=== PATIENT | female | born 1955 | race Caucasian/White ===

== ENCOUNTER → 2017-12-28 15:53 | Outpatient (CLI) | payer OTHER, SELFPAY ==
--- NOTE | 2017-12-28 15:56 | BI_ITS ---
MAMMOGRAPHY - BILATERAL SCREENING REASON FOR EXAM: Female, 62 years old. Routine annual screening examination. PERTINENT HISTORY: Non-contributory. TECHNIQUE: Digital bilateral breast samuel (3D mammographic acquisition) in the CC and MLO projections. 2-D mediolateral oblique (MLO) and craniocaudad (CC) views of both breasts were obtained. CAD: Full Field Digital Mammography with Computer Added Detection was performed. COMPARISON: No comparison mammograms available at this time. If any prior films become available, an addendum to this report can be generated. FINDINGS: Breast Composition: The breasts are heterogeneously dense, which may obscure small masses. There are no dominant masses or suspicious calcifications. There are several small benign-appearing bilateral axillary lymph nodes. No other significant abnormalities are identified. BI/SCREENING MAMM (CAD), BILAT IMPRESSION: Negative screening mammogram. Yearly followup mammogram recommended. (A) ASSESSMENT CATEGORY: BIRADS Category 2: Benign. A letter regarding these results will be sent to the patient by the facility within 30 days. Approximately 10% of breast cancers are not detected by mammography. A normal mammogram should not delay biopsy of a clinically suspicious abnormality. [id number] Electronically Signed: Derek Cabezas MD at 8:10 EDT Tel [phone], Service support ,
== END ==
PROVIDERS: Family Provider Family Medicine; PCP Family Medicine; Visit Provider Obstetrics & Gynecology
DX: Z12.31 Encounter for screening mammogram for malignant neoplasm of breast (principal)
CPT/HCPCS: 77063; 77067

== ENCOUNTER → 2019-12-09 | Outpatient (CLI) | payer OTHER, SELFPAY ==
--- NOTE | 2019-12-09 08:26 | BI_ITS ---
MAMMOGRAPHY - BILATERAL SCREENING REASON FOR EXAM: Female, 64 years old. Routine annual screening examination. PERTINENT HISTORY: Non-contributory. TECHNIQUE: Digital bilateral breast corrie (3D mammographic acquisition) in the CC and MLO projections. 2-D mediolateral oblique (MLO) and craniocaudad (CC) views of both breasts were obtained. CAD: Full Field Digital Mammography with Computer Added Detection was performed. COMPARISON: Comparison is made with prior examination dated December 28, 2017. FINDINGS: Breast Composition: The breasts are heterogeneously dense, which may obscure small masses. There are no dominant masses or suspicious calcifications. Stable small benign-appearing bilateral axillary lymph nodes. No other significant abnormalities are identified. There has been no significant change since the prior study. BI/SCREEN MAMM (CAD) W/CORRIE BILAT IMPRESSION: Stable bilateral screening mammogram. Yearly follow-up mammogram recommended. (A) ASSESSMENT CATEGORY: BIRADS Category 2: Benign. A letter regarding these results will be sent to the patient by the facility within 30 days. Approximately 10% of breast cancers are not detected by mammography. A normal mammogram should not delay biopsy of a clinically suspicious abnormality. [id number] Electronically Signed: Derek Cabezas, at 10:02 EDT , Service support ,
== END | disposition home or self-care (01) ==
LOC: OPBI 08:23
PROVIDERS: PCP Family Medicine; Referring Provider Physician Assistant; Visit Provider Physician Assistant
DX: Z12.31 Encounter for screening mammogram for malignant neoplasm of breast (principal)
CPT/HCPCS: 77063; 77067

== ENCOUNTER 2023-02-07 09:43 | Outpatient (CLI) | payer MEDICARE, OTHER, SELFPAY ==
--- NOTE | 2023-02-07 09:47 | BI_ITS ---
MAMMOGRAPHY - BILATERAL SCREENING REASON FOR EXAM: Female, 67 years old. Routine annual screening examination. PERTINENT HISTORY: Non-contributory. TECHNIQUE: Digital bilateral breast corrie (3D mammographic acquisition) in the CC and MLO projections. 2-D mediolateral oblique (MLO) and craniocaudad (CC) views of both breasts were obtained. CAD: Full Field Digital Mammography with Computer Added Detection was performed. COMPARISON: Comparison is made with prior examination of December 09, 2019 and December 28, 2017. FINDINGS: Breast Composition: The breasts are heterogeneously dense, which may obscure small masses. There are no dominant masses or suspicious calcifications. Stable small benign-appearing bilateral axillary lymph nodes. No other significant abnormalities are identified. There has been no significant change since the prior study. BI/SCRN MAMM (CAD)W/CORRIE BILAT IMPRESSION: Stable bilateral screening mammogram. Yearly follow-up mammogram recommended. (A) ASSESSMENT CATEGORY: BIRADS Category 2: Benign. A letter regarding these results will be sent to the patient by the facility within 30 days. Approximately 10% of breast cancers are not detected by mammography. A normal mammogram should not delay biopsy of a clinically suspicious abnormality. [id number] Electronically Signed: Derek Cabezas MD at 11:00 EDT ,
--- NOTE | 2023-02-07 09:53 | BD_ITS ---
STUDY: DUAL ENERGY X-RAY ABSORPTIOMETRY / DXA REASON FOR EXAM: Female, 67 years old. [id number] TECHNIQUE: Bone Mineral Density (BMD) measurements of lumbar spine and bilateral hips were obtained. COMPARISON: None. FINDINGS: Lumbar Spine (L1-L4): g/cm2 (0.815) / T-score (-2.1) / Z-score (-0.3) Findings are suggestive of osteopenia with a high fracture risk. Left Femur Total: g/cm2 (0.694) / T-score (-2.0) / Z-score (-0.8) Left Femoral Neck: g/cm2 (0.626) / T-score (-2.0) / Z-score (-0.5) Right Femur Total: g/cm2 (0.704) / T-score (-2.0) / Z-score (-0.7) Right Femoral Neck: g/cm2 (0.594) / T-score (-2.3) / Z-score (-0.8) BD/Dexa Bone Density Study IMPRESSION: The patient is considered osteopenic as outlined below according to World Tommy Organization (WHO) criteria with a high fracture risk. Reference Information: The T-score is the number of standard deviations above or below the standard which is normal for young adults at their peak bone mineral density. The World Health Organization (WHO) interprets the T-scores as follows: Above -1 Normal bone density Between -1 and -2.5 Osteopenia Equal to / or below -2.5 Osteoporosis As a practical clinical guideline, osteopenia may be graded as follows: Mild -1 through -1.5 Moderate -1.6 through -2.0 Severe -2.1 through -2.4 The Z-score is the number of standard deviations above or below age-matched controls. A Z-score of less than -1.5 would be considered abnormal. References: 1. NIH Osteoporosis and Related Bone Diseases www osteo.org 2. International Society for Clinical Densitometry www iscd.org 3. National Osteoporosis Foundation www nof.org Electronically Signed: Derek Cabezas MD at 13:14 EDT ,
== END 2023-02-07 23:59 | disposition home or self-care (01) ==
LOC: OPBD 09:44
PROVIDERS: PCP Family Medicine; Referring Provider Physician Assistant; Visit Provider Physician Assistant
DX: Z12.31 Encounter for screening mammogram for malignant neoplasm of breast (principal); Z13.820 Encounter for screening for osteoporosis; N95.1 Menopausal and female climacteric states; M85.851 Other specified disorders of bone density and structure, right thigh; M85.852 Other specified disorders of bone density and structure, left thigh
CPT/HCPCS: 77063; 77067; 77080

== ENCOUNTER → 2023-02-09 | Outpatient (CLI) | payer MEDICARE, OTHER, SELFPAY ==
--- NOTE | 2023-02-09 13:30 | RAD_ITS ---
INDICATION: LEFT KNEE PAIN EXAMINATION/TECHNIQUE: X-RAY - LEFT XR Knee 3 Views 3 VIEWS COMPARISON: FINDINGS: SOFT TISSUES: No soft tissue swelling or gas. No radiopaque foreign body. BONES/JOINTS: Lucency posterior upper pole of the patella suggestive of osteochondritis desiccated and. Remainder of osseous structures intact. RAD/Knee 3 Views IMPRESSION: Since the posterior upper pole of the patella. Question osteochondritis dissecans. Electronically Signed: Len Moore MD, BEATA at 21:21 EDT ,
== END | disposition home or self-care (01) ==
LOC: RAD.FUTURE 13:28 → RAD 13:45
PROVIDERS: PCP Family Medicine; Referring Provider Physician Assistant; Visit Provider Physician Assistant
DX: M25.562 Pain in left knee (principal)
CPT/HCPCS: 73562

== ENCOUNTER → 2024-07-16 | Outpatient (CLI) | payer MEDICARE, OTHER, SELFPAY ==
--- NOTE | 2024-07-16 08:48 | BI_ITS ---
MAMMOGRAPHY - BILATERAL SCREENING REASON FOR EXAM: Female, 69 years old. Routine annual screening examination. PERTINENT HISTORY: Non-contributory. TECHNIQUE: Digital bilateral breast corrie (3D mammographic acquisition) in the CC and MLO projections. 2-D mediolateral oblique (MLO) and craniocaudad (CC) views of both breasts were obtained. CAD: Full Field Digital Mammography with Computer Added Detection was performed. COMPARISON: Comparison is made with prior study dated February 07, 2023 and December 09, 2019. FINDINGS: Breast Composition: The breasts are heterogeneously dense, which may obscure small masses. There are no dominant masses or suspicious calcifications. Stable small bilateral axillary lymph nodes. No other significant abnormalities are identified. There has been no significant change since the prior study. BI/SCRN MAMM (CAD)W/CORRIE BILAT IMPRESSION: Stable bilateral screening mammogram. Yearly follow-up mammogram recommended. (A) ASSESSMENT CATEGORY: BIRADS Category 2: Benign. A letter regarding these results will be sent to the patient by the facility within 30 days. Approximately 10% of breast cancers are not detected by mammography. A normal mammogram should not delay biopsy of a clinically suspicious abnormality. [id number] Electronically Signed: Derek Cabezas MD at 9:45 EDT ,
--- OUTSIDE RECORDS SUMMARY | 2024-07-16 09:19 | XMS RPT_ITS | CCD ---
Author Organization [facility] Care Team Providers Care Type Proof Reproducer Name Role Phone Unavailable Primary Care Provider UnavailROSIE Burks Attending Unavailable ROSIE LAU Attending Unavailable Medications Completed/Discontinued Medications Medication Drug Class(es) Dates Sig (Normalized) Sig (Original) amoxicillin 250 mg oral capsule (2 sources) Penicillin-class Antibacterial amoxicillin (POLYMOX, AMOXIL) 250 mg capsule Take by mouth three times daily. 0 Active Comment on above: Take by mouth three times daily. SUMAtriptan (2 sources) Serotonin-1b and Serotonin-1d Receptor Agonist sumatriptan succinate (IMITREX ORAL) Take by mouth. 0 Active Comment on above: Take by mouth. Problems Problem Classification Problem Date Documented Da te Episodic/Chronic Other and unspecified benign neoplasm (4 sources) Lipoma of skin and subcutaneous tissue of trunk; Translations: [Benign lipomatous neoplasm of skin and subcutaneous tissue of trunk] Onset: 08-30-2022 Episodic Results Test Name Value Interpretation Reference Range Facility CBC (INCLUDES DIFF/PLT)on Basophils (Bld) [#/Vol] 0.029 10*3/uL Normal 0-200 [facility] Comment on above: Performed By: #### 7 406, 7534, 84563 #### [facility] [address], [address] [place] [phone] Wood Grainer: Sukh Boykin MD Basophils/100 WBC (Bld) 0.7 % Normal [facility] Comment on above: Performed By: #### 7 600, 7903, 87174 #### [facility] [address], [address] [place] [address] Wood Grainer: Sukh Boykin MD Eosinophils (Bld) [#/Vol] 0.13 10*3/uL Normal 15-500 [facility] Comment on above: Performed By: #### 7 600, 6399, 60487 #### [facility] of [address], [address] [place] [address] Wood Grainer: Sukh Boykin MD Eosinophils/100 WBC (Bld) 3.1 % Normal [facility] Comment on above: Performed By: #### 7 600, 6399, 13598 #### [facility] of [place] [address] Wood Grainer: Sukh Boykin MD Erythrocyte distribution width (RBC) [Ratio] 15.4 % High 11.0-15.0 [facility] Comment on above: Performed By: #### 7 600, 6399, 16402 #### [facility] of [place] [address] Wood Grainer: Sukh Boykin MD Hematocrit (Bld) [Volume fraction] 39.6 % Normal 35.0-45.0 [facility] Comment on above: Performed By: #### 7 600, 6399, 67066 #### [facility] of [place] [address] Wood Grainer: Sukh Boykin MD Hemoglobin (Bld) [Mass/Vol] 12.8 g/dL Normal 11.7-15.5 [facility] Comment on above: Performed By: #### 7 600, 6399, 67838 #### [facility] of [place] [address] Wood Grainer: Sukh Boykin MD Lymphocytes (Bld) [#/Vol] 1.327 10*3/uL Normal 850-3900 [facility] Comment on above: Performed By: #### 7 600, 6399, 42538 #### [facility] of [place] [address] Wood Grainer: Sukh Boykin MD Lymphocytes/100 WBC (Bld) 31.6 % Normal [facility] Comment on above: Performed By: #### 7 600, 6399, 29400 #### [facility] of [place] [address] Wood Grainer: Sukh Boykin MD MCH (RBC) [Entitic mass] 27.5 pg Normal 27.0-33.0 [facility] Comment on above: Performed By: #### 7 600, 6399, 78322 #### [facility] [place] [address] Wood Grainer: Sukh Boykin MD MCHC (RBC) [Mass/Vol] 32.3 g/dL Normal 32.0-36.0 [facility] Comment on above: Result Comment: For adults, a slight decrease in the calculated MCHC value (in the range of 30 to 32 g/dL) is most likely not clinically significant; however, it should be interpreted with caution in correlation with other red cell parameters and the patient's clinical condition. Performed By: #### 7 600, 63, 46023 #### [facility] [place] [address] Wood Grainer: Sukh Boykin MD MCV (RBC) [Entitic vol] 85.2 fL Normal 80.0-100.0 [facility] Comment on above: Performed By: #### 7 600, 6399, 48734 #### [facility] [place] [address] Wood Grainer: Sukh Boykin MD Monocytes (Bld) [#/Vol] 0.382 10*3/uL Normal 200-950 [facility] Comment on above: Performed By: #### 7 600, 6399, 56272 #### [facility] [place] [address] Wood Grainer: Sukh Boykin MD Monocytes/100 WBC (Bld) 9.1 % Normal [facility] Comment on above: Performed By: #### 7 600, 6399, 93642 #### [facility] [place] [address] Wood Grainer: Sukh Boykin MD Neutrophils (Bld) [#/Vol] 2.331 10*3/uL Normal 7755-5069 [facility] Comment on above: Performed By: #### 7 600, 6399, 31019 #### [facility] of [place] [address] Wood Grainer: Sukh Boykin MD Neutrophils/100 WBC (Bld) 55.5 % Normal [facility] Comment on above: Performed By: #### 7 600, 6399, 89753 #### [facility] of [address], [address] [place] [address] Wood Grainer: Sukh Boykin MD Platelet mean volume (Bld) [Entitic vol] 9.5 fL Normal 7.5-12.5 [facility] Comment on above: Performed By: #### 7 600, 6399, 72094 #### [facility] of [address], [address] [place] [address] Wood Grainer: Sukh Boykin MD Platelets (Bld) [#/Vol] 313 10*3/uL Normal 140-400 [facility] Comment on above: Performed By: #### 7 600, 6399, 58362 #### [facility] of [address], [address] [place] [address] Wood Grainer: Sukh Boykin MD RBC (Bld) [#/Vol] 4.65 10*6/uL Normal 3.80-5.10 [facility] Comment on above: Performed By: #### 7 600, 6399, 69899 #### [facility] of [address], [address] [place] [address] Wood Grainer: Sukh Boykin MD WBC (Bld) [#/Vol] 4.2 10*3/uL Normal 3.8-10.8 [facility] Comment on above: Performed By: #### 7 600, 6399, 38356 #### [facility] of [place] [address] Wood Grainer: Sukh Boykin MD COMPREHENSIVE METABOLIC PANE [facility] 07-03-2024 Albumin [Mass/Vol] 4.3 g/dL Normal 3.6-5.1 [facility] Comment on above: Performed By: #### 7 600, 6399, 88130 #### [facility] of [address], [address] [place] [address] Wood Grainer: Sukh Boykin MD Albumin/Globulin [Mass ratio] 1.6 {ratio} Normal 1.0-2.5 [facility] Comment on above: Performed By: #### 7 600, 6399, 00459 #### [facility] of [address], [address] [place] [address] Wood Grainer: Sukh Boykin MD ALP [Catalytic activity/Vol] 78 U/L Normal 37-153 [facility] Comment on above: Performed By: #### 7 600, 6399, 26257 #### [facility] of [address], [address] [place] [address] Wood Grainer: Sukh Boykin MD ALT [Catalytic activity/Vol] 8 U/L Normal 6-29 [facility] Comment on above: Performed By: #### 7 600, 6399, 45524 #### [facility] of [address], [address] [place] [address] Wood Grainer: Sukh Boykin MD AST [Catalytic activity/Vol] 20 U/L Normal 10-35 [facility] Comment on above: Performed By: #### 7 600, 6399, 92560 #### [facility] of [address], [address] [place] [address] Wood Grainer: Sukh Boykin MD Bilirubin [Mass/Vol] 0.4 mg/dL Normal 0.2-1.2 [facility] Comment on above: Performed By: #### 7 600, 6399, 09832 #### [facility] of [place] [address] Wood Grainer: Sukh Boykin MD BUN/CREATININE RATIO SEE NOTE: Normal 6-22 [facility] Comment on above: Result Comment: Not Reported: BUN and Creatinine are within reference range. Performed By: #### 7 600, 6399, 85273 #### [facility] of [address], [address] [place] [address] Wood Grainer: Sukh Boykin MD Calcium [Mass/Vol] 9.5 mg/dL Normal 8.6-10.4 [facility] Comment on above: Performed By: #### 7 600, 6399, 20661 #### [facility] of [address], [address] [place] [address] Wood Grainer: Sukh Boykin MD Chloride [Moles/Vol] 104 mmol/L Normal 98-110 [facility] Comment on above: Performed By: #### 7 600, 6399, 23664 #### [facility] of [address], [address] [place] [address] Wood Grainer: Sukh Boykin MD CO2 [Moles/Vol] 26 mmol/L Normal 20-32 [facility] Comment on above: Performed By: #### 7 600, 6399, 15481 #### [facility] of [address], [address] [place] [address] Wood Grainer: Sukh Boykin MD Creatinine [Mass/Vol] 0.75 mg/dL Normal 0.50-1.05 [facility] Comment on above: Performed By: #### 7 600, 6399, 47558 #### [facility] of [place] [address] Wood Grainer: Sukh Boykin MD GFR/1.73 sq M.predicted among non-blacks MDRD (S/P/Bld) [Vol rate/Area] 87 mL/min/{1.73_m2} Normal > OR = 60 [facility] Comment on above: Performed By: #### 7 600, 6399, 14811 #### [facility] of [place] [address] Wood Grainer: Sukh Boykin MD Globulin (S) [Mass/Vol] 2.7 g/dL Normal 1.9-3.7 [facility] Comment on above: Performed By: #### 7 600, 6399, 40643 #### [facility] of [place] [address] Wood Grainer: Sukh Boykin MD Glucose [Mass/Vol] 87 mg/dL Normal 65-99 [facility] Comment on above: Result Comment: Fasting reference interval Performed By: #### 7 600, 6399, 11795 #### [facility] of [address], [address] [place] [address] Wood Grainer: Sukh Boykin MD Potassium [Moles/Vol] 4.3 mmol/L Normal 3.5-5.3 [facility] Comment on above: Performed By: #### 7 600, 6399, 21881 #### [facility] of [address], [address] [place] [address] Wood Grainer: Sukh Boykin MD Protein [Mass/Vol] 7.0 g/dL Normal 6.1-8.1 [facility] Comment on above: Performed By: #### 7 600, 6399, 59970 #### [facility] of [address], [address] [place] [address] Wood Grainer: Sukh Boykin MD Sodium [Moles/Vol] 139 mmol/L Normal 135-146 [facility] Comment on above: Performed By: #### 7 600, 6399, 72045 #### [facility] of [place] [address] Wood Grainer: Sukh Boykin MD Urea nitrogen [Mass/Vol] 10 mg/dL Normal 7-25 [facility] Comment on above: Performed By: #### 7 600, 6399, 10167 #### [facility] of [place] [address] Wood Grainer: Sukh Boykin MD LIPID PANEL, STANDARD 0 Cholesterol [Mass/Vol] 276 mg/dL High <200 [facility] Comment on above: Order Comment: FASTI NG:YES FASTING: YES Performed By: #### 7 600, 6399, 64758 #### [facility] of [address], [address] [place] [address] Wood Grainer: Sukh Boykin MD Cholesterol in HDL [Mass/Vol] 63 mg/dL Normal > OR = 50 [employer] Comment on above: Order Comment: FASTI NG:YES FASTING: YES Performed By: #### 7 801, 3750, 67261 #### [facility] [address], [address] [place] [address] Wood Grainer: Sukh Boykin MD Cholesterol in LDL [Mass/Vol] 193 mg/dL High [facility] Comment on above: Order Comment: FASTI NG:YES FASTING: YES Result Comment: LDL- C levels > or = 190 mg/dL may indicate familial hypercholesterolemia (FH). Clinical assessment and measurement of blood lipid levels should be considered for all first degree relatives of patients with an FH diagnosis. LDL Cholesterol (LDL-C) levels > or = 300 mg/dL may indicate homozygous familial hypercholesterolemia (HoFH). Untreated, these extremely high LDL-C levels can result in premature CV events and mortality. Patients should be identified early and provided appropriate interventions to reduce the cumulative LDL-C burden from . For questions about testing for familial hypercholesterolemia, please call [facility] at [email or web address].imoji.INFO. Germán Honeycutt, et al. J National Lipid Association Recommendations for Patient-Centered Management of Dyslipidemia: Part 1 Journal of Clinical Lipidology 2015;9(2), 129-169. [place]. et al. (2014). Homozygous familial hypercholesterolaemia: new insights and guidance for clinicians to improve detection and clinical management. Heart Journal, 35(32), 1230-1094. Reference range: <100 Desirable range <100 mg/dL for primary prevention; <70 mg/dL for patients with CHD or diabetic patients with > or = 2 CHD risk factors. LDL-C is now calculated using the Mina-Hugo calculation, which is a validated novel method providing better accuracy than the Friedewald equation in the estimation of LDL-C. Mina MARSH et al. QUENTIN. 2013;310(19): 6926-2537 (http://education.[employer]/faq/ZEN307) Performed By: #### 7 502, 4154, 51867 #### [facility] [address], [address] [place] [address] Wood Grainer: Sukh Boykin MD Cholesterol.total /Cholesterol in HDL [Mass ratio] 4.4 {ratio} Normal <5.0 [facility] Comment on above: Order Comment: FASTI NG:YES FASTING: YES Performed By: #### 7 600, 6399, 58207 #### [facility] [place] [address] Wood Grainer: Sukh Boykin MD NON HDL CHOLESTEROL 213 mg/dL (calc) High <130 [facility] Comment on above: Order Comment: FASTI NG:YES FASTING: YES Result Comment: For patients with diabetes plus 1 major ASCVD risk factor, treating to a non-HDL-C goal of <100 mg/dL (LDL-C of <70 mg/dL) is considered a therapeutic option. Performed By: #### 7 600, 6399, 52973 #### [facility] [address], [address] [place] [address] Wood Grainer: Sukh Boykin MD Triglyceride [Mass/Vol] 88 mg/dL Normal <150 [facility] Comment on above: Order Comment: FASTI NG:YES FASTING: YES Performed By: #### 7 600, 6399, 74953 #### [facility] [place] [address] Wood Grainer: Sukh Boykin MD CULTURE, URINE, ROUTINEon CULTURE, URINE, ROUTINE SEE NOTE Abnormal [facility] Comment on above: Result Comment: CULTURE, URINE, ROUTINE Micro Number: [id number] Test Status: Final Specimen Source: Urine Specimen Quality: Adequate Result: Greater than 100,000 CFU/mL of Citrobacter braakii C.braakii INT MAGED AMOX/CLAVULANATE R 4 CEFAZOLIN R >=64 1 CEFEPIME S <=1 CEFTAZIDIME S <=1 CEFTRIAXONE S <=1 CIPROFLOXACIN S <=0.25 GENTAMICIN S <=1 IMIPENEM S <=0.25 LEVOFLOXACIN S 0.5 NITROFURANTOIN S <=16 PIP/TAZOBACTAM S <=4 TOBRAMYCIN S <=1 TRIMETHOPRIM/SULFA S <=20 S = Susceptible I = Intermediate R = Resistant NS = Not susceptible SDD = Susceptible Dose Dependent * = Not Tested NR = Not Reported NN = See Therapy Comments THERAPY COMMENTS Note 1: For uncomplicated UTI caused by E. coli, K. pneumoniae or P. mirabilis: Cefazolin is susceptible if MAGED <32 mcg/mL and predicts susceptible to the oral agents cefaclor, cefdinir, cefpodoxime, cefprozil, cefuroxime, cephalexin and loracarbef. Performed By: #### 3 95 #### [facility] [place] [id number] [facility], [address] [place] [address] Wood Grainer: Sukh Boykin MD CNOVon 09-02-2022 CNOV Office Visit (GURU ) VANGIE SHOEMAKER ([id number]) 1955 F Date Time Provider Department 09/02/22 11:00 AM ROSIE LAU During your visit today, we recorded the following information about you: Rosie Lau MD 09/02/2022 12:26 PM Signed Indication:67 y/o wf returns for excision left flank lipomatous mass PAST MEDICAL HISTORY Diagnosis Date Migraines PAST SURGICAL HISTORY Procedure Laterality Date CANCER ANTIGEN 15-3 PLUS ALLERGIES No Known Allergies Current Outpatient Medications on File Prior to Visit Medication Sig amoxicillin (POLYMOX, AMOXIL) 250 mg capsule Take by mouth three times daily. sumatriptan succinate (IMITREX ORAL) Take by mouth. No current facility-administered medications on file prior to visit. Excision subcutaneous soft tissue mass Suspected diagnosis lipoma Patient verified by: Name and Date of R/B/A Risks, benefits and alternatives of proceeding with excision of subcutaneous mass with or without intraoperative ultrasound were discussed with risks to include but not limited to hemorrhage, infection, seroma and hematoma formation and possible need for further surgical intervention.Patient expressed understanding and wishes to proceed Site of the procedure confirmed yes UNIVERSAL PROTOCOL / SAFETY CHECKLIST Sign in Communication: Completed Time Out: Team Confirms the Correct Patient, Correct Procedure, Correct Site and Site Marking, Correct Position (if applicable). Sign Out Discussion: Completed The left flank/chest was prepped and draped in a sterile manner. 0.5% bupivicaine was injected for local anesthesia. A 15 blade was used to incise the skin overlying the lesion which measures 8cm. The lesion was sharply and bluntly dissected from surrounding subq, was deep to costal muscles .cautery for hemostasis , 4-0 vicryl was used to close the skin.skin glue was applied Specimen c/w lipoma not sent The patient tolerated the procedure well, postop instructions reviewed Follow up:if any problems Rosie Lau MD 09/02/2022 12:23 PM Allergies As of Date: 09/02/2022 (No Known Allergies) Date Reviewed: 09/02/2022 Reviewed by: Rosie Lau MD - Fully Assessed Reason for Visit: Follow Up [171] Cmt: lipoma removal Primary Visit Diagnosis:Lipoma of flank [D17.1] Prescriptions as of 09/02/2022 - amoxicillin (POLYMOX, AMOXIL) 250 mg capsule Take by mouth three times daily. - sumatriptan succinate (IMITREX ORAL) Take by mouth. Problem List As Of Date 09/02/2022 Noted Resolved Lipoma of flank [D17.1] 08/30/2022 Disposition: Return if symptoms worsen or fail to improve. Follow-up and Disposition History for Encounter Date Provider Department Center 09/02/2022 [id number] LAU [facility] Encounter Status:Closed by ROSIE LAU on 09/02/22 [facility] CNOVon 08-30-2022 CNOV Office Visit (GURU ) VANGIE SHOEMAKER ([id number]) 1955 F Date Time Provider Department 08/30/22 8:15 AM ROSIE LAU During your visit today, we recorded the following information about you: Temperature Pulse Blood pressure Weight 97.3 degrees 88/minute 152/83 80.2 kg Height 1.702 m Rosie Lau MD 08/30/2022 8:33 AM Signed Assessment IMPRESSION AND PLAN: 67 year old wf with left chest/flank lipomatous mass, Risks, benefits and alternatives of proceeding with excision of subcutaneous mass with or without intraoperative ultrasound were discussed with risks to include but not limited to hemorrhage, infection, seroma and hematoma formation and possible need for further surgical intervention.Patient expressed understanding and wishes to proceed Will do in office later this week HPI: Vangie Shoemaker is a 67 year old female,She presents for the evaluation of subq mass of lateral left chest at level of bra strap, irritating and concerning, only noted it 2 weeks ago, no pain, redness or trauma PAST MEDICAL HISTORY Diagnosis Date Migraines PAST SURGICAL HISTORY Procedure Laterality Date CANCER ANTIGEN 15-3 PLUS FAMILY HISTORY Problem Relation Age of Onset Cancer Father CURRENT MEDICATIONS: amoxicillin (POLYMOX, AMOXIL) 250 mg capsule Take by mouth three times daily. sumatriptan succinate (IMITREX ORAL) Take by mouth. CURRENT ALLERGIES: ALLERGIES No Known Allergies Social History Tobacco Use Smoking status: Former Types: Cigarettes Smokeless tobacco: Never Tobacco comments: 20 years ago Substance Use Topics Alcohol use: Not Currently Drug use: Never Ros: Reviewed as per rn note EXAM: BP 152/83 Pulse 88 Temp 36.3 ?C (97.3 ?F) Ht 170.2 cm (5' 7 ) Wt 80.2 kg (176 lb 12.8 oz) BMI 27.69 kg/m? BP 152/83 Pulse 88 Temp 36.3 ?C (97.3 ?F) Ht 170.2 cm (5' 7 ) Wt 80.2 kg (176 lb 12.8 oz) BMI 27.69 kg/m? Body mass index is 27.69 kg/m?. General appearance: Well appearing, alert, in no acute distress Head: Normocephalic, atraumatic Eyes: Anicteric sclera , Pupils are equally round and reactive Neck: No JVD, Trachea midline Left lateral chest at level of bra strap is 7-8 cm smooth, mobile lipomatous mass, no overlying skin changes Extremities:No clubbing, cyanosis, or edema. Neuro: Alert and oriented times three, No apparent distress RADIOLOGY: none Rosie Lau MD 08/30/2022 8:31 AM Bambi Abreu RN 08/30/2022 8:33 AM Signed GENERAL:No weight loss, No malaise, No fevers HEENT:Negative for frequent or significant headaches, Eye disease or injury CARDIOVASCULAR: Negative for chest pain, Negative for leg swelling, Negative for palpitaions RESPIRATORY:Negative for cough, wheezing or shortness of breath . GASTROINTESTINAL: Negative for abdominal discomfort, Negative for blood in stools, Negative for black stools, and Negative for change in bowel habits GENITOURINARY: No history of dysuria, frequency or incontinence. ENDOCRINE: None PROFESSIONAL APPLICATION DESIGNER:Denies any concerns PROFESSIONAL APPLICATION DESIGNER: N/A MUSCULOSKELETAL: Negative for joint pain or swelling, back pain or muscle pain. NEUROLOGIC:Negative for focal numbness Negative for weakness Negative for syncope Negative for dizziness Headaches HEMATOLOGIC/LYMPHATIC/IMMUN OLOGIC:Negative for prolonged bleeding, Negative for bruising easily, Negative for swollen nodes, and Past transfussion Allergies As of Date: 08/30/2022 (No Known Allergies) Date Reviewed: 08/30/2022 Reviewed by: Bambi Abreu RN - Fully Assessed Visit Diagnosis:Lipoma of flank [D17.1] Prescriptions as of 08/30/2022 - amoxicillin (POLYMOX, AMOXIL) 250 mg capsule Take by mouth three times daily. - sumatriptan succinate (IMITREX ORAL) Take by mouth. Problem List As Of Date 08/30/2022 Noted Resolved Lipoma of flank [D17.1] 08/30/2022 Disposition: Return in about 3 days (around 09/02/2022). Follow-up and Disposition History for Encounter Date Provider Department Center 08/30/2022 [id number] LAU [facility] Encounter Status:Closed by ROSIE LAU on 08/30/22 Normal [facility] CT CARDIAC SCORINGon 022 CT CARDIAC SCORING Patient Name: VANGIE SHOEMAKER STUDY: CT CARDIAC SCORING; 02/10/2022 12:54 pm INDICATION: Hyperlipidemia, unspecified. COMPARISON: None. ACCESSION NUMBER(S): [id number] ORDERING CLINICIAN: CLARISSE HEART TECHNIQUE: Using prospective ECG gating, CT scan of the coronary arteries was performed without intravenous contrast. Coronary calcium scoring was performed according to the method of Agatston. FINDINGS: The score and distribution of calcium in the coronary arteries is as follows: LM 0 LAD 0 LCx 0 RCA 0 Total 0 The heart size is normal and there is no pericardial effusion. The chest vasculature is unremarkable.There is no significant mediastinal or hilar adenopathy. There several bands of left lower lung atelectasis or fibrosis, and also at the medial segment of the middle lobe along the mediastinal border.. There is focal pleural thickening at the left mid anterior mediastinum margin. The included lungs otherwise are clear. The visualized upper abdominal contents are within normal limits. The bony structures are intact. IMPRESSION: Coronary artery calcium score of 0. Please note that up to 5% of patients with a negative exam still have significant noncalcified plaque, and therefore have a falsely negative CT coronary calcium score exam. Additional findings as above. Coronary artery calcium scoring may be helpful in predicting the risk for future coronary heart disease events. According to the [employer] Foundation Clinical Expert Consensus Task Force, such testing provides important prognostic information in patients with more than one coronary heart disease risk factor. The coronary artery calcium score correlates with the annual risk of a non-fatal myocardial infarction or coronary heart disease . Coronary artery score Annual Risk 0-99 0.4% 100-399 1.3% >400 2.4% These three breakpoints correspond to lower, intermediate and high risk states for future coronary events. Such information should be used, along with appropriate clinical judgment, to make decisions regarding the intensity of risk factor management strategies to treat blood lipids and to modify other non-lipid coronary risk factors. Reference: Avon P et al. Circulation. 2007; 115:402-426 Electronically signed by: TWIN YAN MD Normal [facility] ED NOTEon 10-20-2017 ED NOTE HNO ID: [id number] Author: Ivanna Vides RN Service: Emergency Medicine Author Type: Registered Nurse Type: ED Notes Filed: 10/20/2017 4:21 PM Note Text: Migraine started last night improved today but came back later Normal [facility] ED PROV NOTEon 10-20-2017 ED PROV NOTE HNO ID: [id number] thor: Chuck Manning, MDService: Emergency MedicineAuthor Type: PhysicianType: ED Provider NotesFiled: 10/20/2017 4:49 PMNote Text:ED Provider NotePatient Name: Vangie WhitakerN: [id number] DATE: 10/20/17HistoryPatient presents with:Headache nation has a known history of migraines. This is typical except moresevere than her usual.She experienced the onset of a headache last Center L4 5 PM took anImitrex went to bed felt better woke up without a headache. Later thismorning it started again she took an Imitrex for 5 and felt better untilabout noon. Then it returned again. She is expressing photophobia andphonophobia.Also experienced some nausea and vomiting along with some diarrhea.Some chills but no fevers. She has no rashes.She is thirsty and is noticed slight decrease in urine output.She did not have an aura or prodrome and this is typical for her.She has no symptoms nor any myalgia or arthralgia sore throat or othersymptoms to suggest an influenzaHistory provided by: Patient and relativeLanguage seismic interpreter used: NoPAST MEDICAL HISTORYDiagnosis Date- MigrainePAST SURGICAL HISTORYProcedure Laterality Date- EYE SURGERY HXNo family history on file.Social HistorySocial History Main Topics- Smoking status: Never Smoker- Smokeless tobacco: Never Used- Alcohol use No- Drug use: No- Sexual activity: Not AskedALLERGIESNo Known AllergiesReview of SystemsConstitutional: Positive for chills. Negative for fever.HENT: Negative for congestion, ear pain and nosebleeds.Eyes: Negative for pain, discharge, itching and visual disturbance.Respiratory: Negative for apnea, cough, chest tightness, shortness ofbreath and wheezing.Gastrointestinal: Negative for abdominal pain, blood in stool,constipation, diarrhea, nausea and vomiting.Genitourinary: Negative for difficulty urinating, dysuria, frequency andhematuria.Musculoskeleta l: Negative for arthralgias, back pain, myalgias and neckpain.Skin: Negative for color change, pallor and rash.Allergic/Immunologic: Negative for immunocompromised state.Neurological: Positive for headaches. Negative for dizziness, tremors,seizures, syncope, weakness and light-headedness.Hematologi aurora: Negative for adenopathy. Does not bruise/bleed easily.Psychiatric/Behavior al: Negative for behavioral problems, confusion,decreased concentration, self-injury, sleep disturbance and suicidalideas.Physical ExamBP 148/78 Pulse 78 Temp (Src) 97.7 (Temporal Artery) Resp 18 Ht 5'8 (1.73m) Wt 165 lb (74.8kg) SpO2 100% BMI 25.09 kg/(m2).Physical ExamConstitutional: She is oriented to person, place, and time. She appearswell-developed and well-nourished. No distress.HENT:Head: Normocephalic and atraumatic.Eyes: Conjunctivae and EOM are normal. Pupils are equal, round, andreactive to light. Right eye exhibits no discharge. Left eye exhibits nodischarge. No scleral icterus.Neck: Normal range of motion. Neck supple. No JVD present.Cardiovascular: Normal rate, regular rhythm, normal heart sounds andintact distal pulses. Exam reveals no gallop and no friction rub.No murmur heard.Pulmonary/Chest: Effort normal and breath sounds normal. No respiratorydistress. She has no wheezes. She has no rales. She exhibits notenderness.Abdominal: She exhibits no distension and no mass. There is no tenderness.There is no rebound and no guarding.Musculoskeletal: Normal range of motion. She exhibits no edema, tendernessor deformity.Lymphadenopathy: She has no cervical adenopathy.Neurological: She is alert and oriented to person, place, and time. Nocranial nerve deficit. Coordination normal.Visual milligan are intact.Extraocular movements intact remainder cranial nerves II through XIIgrossly intact.No truncal ataxia.No pronator drift.She relates well her heels and her toes Romberg was normal with eyes openand close.She is mentating clearly.Skin: No rash noted. She is not diaphoretic. No erythema. No pallor.Psychiatric: She has a normal mood and affect. Her behavior is normal.Judgment and thought content normal.Diagnostic TestingED Labs Ordered and Reviewed - No data to displayProceduresMedical Decision Making / ED CourseED Course IV fluid bolus along with 15 of Toradol, 125 mg Solu-Medrol, 10 mgCompazine, 25 mg of Benadryl were all administered and patient wasdischarged. She understands potential need to return if worse otherwiseto follow-up with her regular doctorEncounter Diagnosis ICD-10-CM1. Migraine without aura and without status migrainosus, not [id number] Patient was DISCHARGED: Counseled patient regarding suspecteddiagnosis AND need for follow-up. Discharged home with verbal and writteninstructions. They were instructed to return as needed for persistent orworsening symptoms or any new concerns.Condition at time of disposition: stableSIGNATURE: Jakob Parrish MD10/20/17 1649 Normal [facility] Vital Signs Date Time Vital Sign Value Performing Clinician Ryani luz 08-30-2022 08:14-0500 Body height 170.2 cm Rosie Lau MD Work Phone: [facility] 08-30-2022 08:14-0500 Body temperature 97.3 [degF] Rosie Lau MD Work Phone: [facility] 08-30-2022 08:14-0500 Body weight 80.2 kg Roise Lau MD Work Phone: [facility] 08-30-2022 08:14-0500 Diastolic blood pressure 83 mm[Hg] Rosie Lau MD Work Phone: [facility] 08-30-2022 08:14-0500 Heart rate 88 /min Rosie Lau MD Work Phone: [facility] 08-30-2022 08:14-0500 Systolic blood pressure 152 mm[Hg] Rosie Lau MD Work Phone: [facility] Encounters Encounter Date Encounter Type Care Provider Facility Start: 09-02-2022 End: 09-02-2022 ambulatory ROSIE LAU Facility:[facility] Start: 09-02-2022 End: 09-02-2022 Patient encounter procedure Rosie Lau MD Work Phone: General Surgery Comment on above: Lipoma of flank (Mary Jo erik Dx) Start: 08-30-2022 End: 08-30-2022 ambulatory ROSIE LAU Facility:[facility] Start: 08-30-2022 End: 08-30-2022 Patient encounter procedure Rosie Lau MD Work Phone: General Surgery Comment on above: Lipoma of flank Plan of Treatment Date Care Activity Detail Author Start: 2022 ADVANCE DIRECTIVE DISCUSSION ADVANCE DIRECTIVE DISCUSSION [facility] Start: 2022 BONE DENSITY BONE DENSITY [facility] Start: 2022 PNEUMOCOCCAL: 65+ (1 - PCV) PNEUMOCOCCAL: 65+ (1 - PCV) [facility] Start: 10-20-2021 COVID-19 VACCINE (4 - Booster for Pfizer series) COVID-19 VACCINE (4 - Booster for Pfizer series) [facility] Start: 09-25-2021 DEPRESSION ASSESSMENT DEPRESSION ASS ESSMENT [facility] Start: 2007 SHINGRIX VACCINE (1 of 2) SHINGRIX V ACCINE (1 of 2) [facility] Start: 2002 COLOGUARD (FIT-DNA) COLOGUARD (FIT-D NA) [facility] Start: 2002 Colonoscopy COLONOSCOPY [facility] Start: 2002 COLORECTAL CANCER SCREENING COLORECTAL CANCER SCREENING [facility] Start: [address] COLONOGRAPHY [facility] Start: 2002 DIABETES SCREEN DIABETES SCREEN [facility] Start: 2002 FECAL OCCULT BLOOD FECAL OCCULT BLOO D [facility] Start: 2002 LIPID SCREEN LIPID SCREEN [facility] Start: 2002 SIGMOIDOSCOPY SIGMOIDOSCOPY [facility] Start: 1997 Mammography MAMMOGRAM [facility] Start: 1976 Urine microalbumin profile DTAP,TDAP ,TD (1 - Tdap) [facility] Start: 1975 HEPATITIS C SCREENING HEPATITIS C SC REENING [facility] Start: 1975 HIV SCREENING HIV SCREENING [facility] Payers Date Payer Category Payer Medicare MEDICARE MEDICAR E A AND B [id number] 2022-Present [phone] [place] [address] Medicare [id number] 2022 Medicare [id number] 2022 Private Health Insurance [facility] [employer] [id number] 2022-Present [phone] [address] [place] [address] Indemnity [id number] 2022 Unknown [id number] Social History Date Type Detail Facility Start: [facility]22 [facility] History of tobacco use Current smoker [facility] History of tobacco use Cigarette Smoker [facility] Start: 08-30-2022 Tobacco use and exposure Smoke less tobacco non-user [facility] Start: 08-30-2022 End: 09-02-2022 Alcohol intake Ex-drinker (finding) [facility] Start: 08-30-2022 Tobacco Comment 20 years ago [facility] Start: 1955 Sex Assigned At Not on file [facility] Progress note 09-02-2022 Note Date & Type Note Facility 09-02-2022 Note HNO ID: [id number] Author: Rosie Lau MD Service: ? Author Type: Physician Type: Progress Notes Filed: 09/02/2022 12:26 PM Note Text: Indication:67 y/o wf returns for excision left flank lipomatous mass PAST MEDICAL HISTORY Diagnosis Date Migraines PAST SURGICAL HISTORY Procedure Laterality Date CANCER ANTIGEN 15-3 PLUS ALLERGIES No Known Allergies Current Outpatient Medications on File Prior to Visit Medication Sig amoxicillin (POLYMOX, AMOXIL) 250 mg capsule Take by mouth three times daily. sumatriptan succinate (IMITREX ORAL) Take by mouth. No current facility-administered medications on file prior to visit. Excision subcutaneous soft tissue mass Suspected diagnosis lipoma Patient verified by: Name and Date of R/B/A Risks, benefits and alternatives of proceeding with excision of subcutaneous mass with or without intraoperative ultrasound were discussed with risks to include but not limited to hemorrhage, infection, seroma and hematoma formation and possible need for further surgical intervention.Patient expressed understanding and wishes to proceed Site of the procedure confirmed yes UNIVERSAL PROTOCOL / SAFETY CHECKLIST Sign in Communication: Completed Time Out: Team Confirms the Correct Patient, Correct Procedure, Correct Site and Site Marking, Correct Position (if applicable). Sign Out Discussion: Completed The left flank/chest was prepped and draped in a sterile manner. 0.5% bupivicaine was injected for local anesthesia. A 15 blade was used to incise the skin overlying the lesion which measures 8cm. The lesion was sharply and bluntly dissected from surrounding subq, was deep to costal muscles .cautery for hemostasis , 4-0 vicryl was used to close the skin.skin glue was applied Specimen c/w lipoma not sent The patient tolerated the procedure well, postop instructions reviewed Follow up:if any problems Rosie Lua MD 09/02/2022 12:23 PM [facility] History of Present illness Narrative 09-02-2022 Rosie Lau MD - 09/02/2022 12:23 PM EST Note Date & Type Note Facility 09-02-2022 History of Presen t illness Narrative Indication:67 y/o wf returns for excision left flank lipomatous mass PAST MEDICAL HISTORY Diagnosis Date Migraines PAST SURGICAL HISTORY Procedure Laterality Date CANCER ANTIGEN 15-3 PLUS ALLERGIES No Known Allergies Current Outpatient Medications on File Prior to Visit Medication Sig amoxicillin (POLYMOX, AMOXIL) 250 mg capsule Take by mouth three times daily. sumatriptan succinate (IMITREX ORAL) Take by mouth. No current facility-administered medications on file prior to visit. Excision subcutaneous soft tissue mass Suspected diagnosis lipoma Patient verified by: Name and Date of R/B/A Risks, benefits and alternatives of proceeding with excision of subcutaneous mass with or without intraoperative ultrasound were discussed with risks to include but not limited to hemorrhage, infection, seroma and hematoma formation and possible need for further surgical intervention.Patient expressed understanding and wishes to proceed Site of the procedure confirmed yes UNIVERSAL PROTOCOL / SAFETY CHECKLIST Sign in Communication: Completed Time Out: Team Confirms the Correct Patient, Correct Procedure, Correct Site and Site Marking, Correct Position (if applicable). Sign Out Discussion: Completed The left flank/chest was prepped and draped in a sterile manner. 0.5% bupivicaine was injected for local anesthesia. A 15 blade was used to incise the skin overlying the lesion which measures 8cm. The lesion was sharply and bluntly dissected from surrounding subq, was deep to costal muscles .cautery for hemostasis , 4-0 vicryl was used to close the skin.skin glue was applied Specimen c/w lipoma not sent The patient tolerated the procedure well, postop instructions reviewed Follow up:if any problems Rosie Lau MD 09/02/2022 12:23 PM documented in this encounter [facility] Progress note 08-30-2022 Note Date & Type Note Facility 08-30-2022 Note HNO ID: [id number] Author: Bambi Abreu RN Service: ? Author Type: ? Type: Progress Notes Filed: 08/30/2022 8:33 AM Note Text: GENERAL:No weight loss, No malaise, No fevers HEENT:Negative for frequent or significant headaches, Eye disease or injury CARDIOVASCULAR: Negative for chest pain, Negative for leg swelling, Negative for palpitaions RESPIRATORY:Negative for cough, wheezing or shortness of breath . GASTROINTESTINAL: Negative for abdominal discomfort, Negative for blood in stools, Negative for black stools, and Negative for change in bowel habits GENITOURINARY: No history of dysuria, frequency or incontinence. ENDOCRINE: None PROFESSIONAL APPLICATION DESIGNER:Denies any concerns PROFESSIONAL APPLICATION DESIGNER: N/A MUSCULOSKELETAL: Negative for joint pain or swelling, back pain or muscle pain. NEUROLOGIC:Negative for focal numbness Negative for weakness Negative for syncope Negative for dizziness Headaches HEMATOLOGIC/LYMPHATIC/IMMUNOLOGIC:Negativ e for prolonged bleeding, Negative for bruising easily, Negative for swollen nodes, and Past transfussion [facility] Progress note 08-30-2022 Note Date & Type Note Facility 08-30-2022 Note HNO ID: [id number] Author: Rosie Lau MD Service: ? Author Type: Physician Type: Progress Notes Filed: 08/30/2022 8:33 AM Note Text: Assessment IMPRESSION AND PLAN: 67 year old wf with left chest/flank lipomatous mass, Risks, benefits and alternatives of proceeding with excision of subcutaneous mass with or without intraoperative ultrasound were discussed with risks to include but not limited to hemorrhage, infection, seroma and hematoma formation and possible need for further surgical intervention.Patient expressed understanding and wishes to proceed Will do in office later this week HPI: Vangie Shoemaker is a 67 year old female,She presents for the evaluation of subq mass of lateral left chest at level of bra strap, irritating and concerning, only noted it 2 weeks ago, no pain, redness or trauma PAST MEDICAL HISTORY Diagnosis Date Migraines PAST SURGICAL HISTORY Procedure Laterality Date CANCER ANTIGEN 15-3 PLUS FAMILY HISTORY Problem Relation Age of Onset Cancer Father CURRENT MEDICATIONS: amoxicillin (POLYMOX, AMOXIL) 250 mg capsule Take by mouth three times daily. sumatriptan succinate (IMITREX ORAL) Take by mouth. CURRENT ALLERGIES: ALLERGIES No Known Allergies Social History Tobacco Use Smoking status: Former Types: Cigarettes Smokeless tobacco: Never Tobacco comments: 20 years ago Substance Use Topics Alcohol use: Not Currently Drug use: Never Ros: Reviewed as per rn note EXAM: BP 152/83 Pulse 88 Temp 36.3 ?C (97.3 ?F) Ht 170.2 cm (5' 7 ) Wt 80.2 kg (176 lb 12.8 oz) BMI 27.69 kg/m? BP 152/83 Pulse 88 Temp 36.3 ?C (97.3 ?F) Ht 170.2 cm (5' 7 ) Wt 80.2 kg (176 lb 12.8 oz) BMI 27.69 kg/m? Body mass index is 27.69 kg/m?. General appearance: Well appearing, alert, in no acute distress Head: Normocephalic, atraumatic Eyes: Anicteric sclera , Pupils are equally round and reactive Neck: No JVD, Trachea midline Left lateral chest at level of bra strap is 7-8 cm smooth, mobile lipomatous mass, no overlying skin changes Extremities:No clubbing, cyanosis, or edema. Neuro: Alert and oriented times three, No apparent distress RADIOLOGY: none Rosie Lau MD 08/30/2022 8:31 AM [facility] History of Present illness Narrative 08-30-2022 Bambi Abreu RN - 08/30/2022 8:16 AM Eddi Lau MD - 08/30/2022 8:14 AM EST Note Date & Type Note Facility 08-30-2022 History of Presen t illness Narrative GENERAL:No weight loss, No malaise, No fevers HEENT:Negative for frequent or significant headaches, Eye disease or injury CARDIOVASCULAR: Negative for chest pain, Negative for leg swelling, Negative for palpitaions RESPIRATORY:Negative for cough, wheezing or shortness of breath . GASTROINTESTINAL: Negative for abdominal discomfort, Negative for blood in stools, Negative for black stools, and Negative for change in bowel habits GENITOURINARY: No history of dysuria, frequency or incontinence. ENDOCRINE: None PROFESSIONAL APPLICATION DESIGNER:Denies any concerns PROFESSIONAL APPLICATION DESIGNER: N/A MUSCULOSKELETAL: Negative for joint pain or swelling, back pain or muscle pain. NEUROLOGIC:Negative for focal numbness Negative for weakness Negative for syncope Negative for dizziness Headaches HEMATOLOGIC/LYMPHATIC/IMMUNOLOGIC:Ne gative for prolonged bleeding, Negative for bruising easily, Negative for swollen nodes, and Past transfussion Assessment IMPRESSION AND PLAN: 67 year old wf with left chest/flank lipomatous mass, Risks, benefits and alternatives of proceeding with excision of subcutaneous mass with or without intraoperative ultrasound were discussed with risks to include but not limited to hemorrhage, infection, seroma and hematoma formation and possible need for further surgical intervention.Patient expressed understanding and wishes to proceed Will do in office later this week HPI: Vangie Shoemaker is a 67 year old female,She presents for the evaluation of subq mass of lateral left chest at level of bra strap, irritating and concerning, only noted it 2 weeks ago, no pain, redness or trauma PAST MEDICAL HISTORY Diagnosis Date Migraines PAST SURGICAL HISTORY Procedure Laterality Date CANCER ANTIGEN 15-3 PLUS FAMILY HISTORY Problem Relation Age of Onset Cancer Father CURRENT MEDICATIONS: amoxicillin (POLYMOX, AMOXIL) 250 mg capsule Take by mouth three times daily. sumatriptan succinate (IMITREX ORAL) Take by mouth. CURRENT ALLERGIES: ALLERGIES No Known Allergies Social History Tobacco Use Smoking status: Former Types: Cigarettes Smokeless tobacco: Never Tobacco comments: 20 years ago Substance Use Topics Alcohol use: Not Currently Drug use: Never Ros: Reviewed as per rn note EXAM: BP 152/83 Pulse 88 Temp 36.3 C (97.3 F) Ht 170.2 cm (5' 7 ) Wt 80.2 kg (176 lb 12.8 oz) BMI 27.69 kg/m BP 152/83 Pulse 88 Temp 36.3 C (97.3 F) Ht 170.2 cm (5' 7 ) Wt 80.2 kg (176 lb 12.8 oz) BMI 27.69 kg/m Body mass index is 27.69 kg/m . General appearance: Well appearing, alert, in no acute distress Head: Normocephalic, atraumatic Eyes: Anicteric sclera , Pupils are equally round and reactive Neck: No JVD, Trachea midline Left lateral chest at level of bra strap is 7-8 cm smooth, mobile lipomatous mass, no overlying skin changes Extremities:No clubbing, cyanosis, or edema. Neuro: Alert and oriented times three, No apparent distress RADIOLOGY: none Rosie Lau MD 08/30/2022 8:31 AM documented in this encounter [facility] Evaluation note Note Date & Type Note Facility Evaluation note Diagnosis Lipoma of flank Lipoma of other skin and subcutaneous tissue documented in this encounter [facility] Evaluation note Note Date & Type Note Facility Evaluation note Diagnosis Lipoma of flank- Primary Lipoma of other skin and subcutaneous tissue documented in this encounter [facility] Summary Purpose Family History No Family History Records FoundNo Family History Records FoundNo Family History Records FoundNo Family History Records Found Advance Directives No Advanced Directives Records FoundNo Advanced Directives Records FoundNo Advanced Directives Records FoundNo Advanced Directives Records Found Additional Source Comments INFORMATION SOURCE (unrecogn ized section and content) DATE CREATED AUTHOR 03/19/2018 [facility] DATE CREATED AUTHOR AUTHOR'S ORGANIZ ATION 02/13/2022 [facility] DATE CREATED AUTHOR AUTHOR'S ORGANIZ ATION 09/17/2022 [facility] DATE CREATED AUTHOR AUTHOR'S ORGANIZ ATION 07/05/2024 [facility] Source Comments (unrecognize d section and content) In the event this informatio n is protected by the Federal Confidentiality of Alcohol and Drug Abuse Patient Records regulations: The Federal rules restrict any use of the information to criminally investigate or prosecute any alcohol or drug abuse patient[facility] the event this information is protected by the Federal Confidentiality of Alcohol and Drug Abuse Patient Records regulations: The Federal rules restrict any use of the information to criminally investigate or prosecute any alcohol or drug abuse patient.[facility] Reason for Visit (unrecogniz ed section and content) Reason Comments Follow Up lipoma removal FOR RECORDS PERTAINING TO PATIENTS WHO ARE OR HAVE BEEN ENROLLED IN A CHEMICAL DEPENDENCY/SUBSTANCEABUSE PROGRAM, SOME INFORMATION MAY BE OMITTED. This clinical summary was aggregated from multiple sources. Caution should be exercised in using it in the provision of clinical care. This summary normalizes information from multiple sources, and as a consequence, information in this document may materially change the coding, format and clinical context of patient data. In addition, data may be omitted in some cases. CLINICAL DECISIONS SHOULD BE BASED ON THE PRIMARY CLINICAL RECORDS. [facility]. provides no warranty or guarantee of the accuracy or completeness of information in this document.
== END | disposition home or self-care (01) ==
LOC: OPBI 08:46
PROVIDERS: PCP Family Medicine; Referring Provider Physician Assistant; Visit Provider Physician Assistant
DX: Z12.31 Encounter for screening mammogram for malignant neoplasm of breast (principal)
CPT/HCPCS: 77063; 77067

== ENCOUNTER → 2025-07-29 | Outpatient (CLI) | payer MEDICARE, OTHER, SELFPAY ==
--- NOTE | 2025-07-29 14:33 | BI_ITS ---
EXAM: BI/SCRN MAMM (CAD)W/CORRIE BILAT
--- NOTE | 2025-07-29 14:55 | BD_ITS ---
PROCEDURE: BD/Dexa Bone Density Study
== END | disposition home or self-care (01) ==
PROVIDERS: PCP Family Medicine; Referring Provider Physician Assistant; Visit Provider Physician Assistant
DX: Z12.31 Encounter for screening mammogram for malignant neoplasm of breast (principal); Z13.820 Encounter for screening for osteoporosis; Z78.0 Asymptomatic menopausal state
CPT/HCPCS: 77063; 77067; 77080